=== PATIENT | male | born 1990 | race Caucasian/White ===

== ENCOUNTER 2017-12-25 20:32 | Inpatient (IN) | payer SELFPAY ==
[~2017-12-25] VITALS: Ht 185.4 cm; Wt 84.0 kg
[2017-12-25] MEDS ORDERED: IOHEXOL 350 MG/ML 10 ML VIAL (for RAD DIAG) IVCONTRAST ONE (20:33)
[2017-12-25 20:34] VITALS: O2SAT 100
[2017-12-25] MEDS ORDERED: ceFAZolin 2 GM PREMIX 50 ML ONE (20:36)
[2017-12-25] MEDS ORDERED: DIPHTH/TETANUS/ACEL PERTUSSIS (BOOSTER) 0.5 ML VIAL/PFS IM ONE (20:36)
[2017-12-25] MEDS ORDERED: ONDANSETRON HCL 4 MG/2 ML VIAL ONE (20:42)
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
[2017-12-25 20:59] LABS: BASOPHIL % 0.6 % (0.0-2.0); EOSINOPHIL # 0.1 TH/MM3 (0-0.4); EOSINOPHIL % 0.8 % (0.0-4.0); HEMATOCRIT 37.1 % (39.0-51.0); HEMOGLOBIN 13.1 GM/DL (13.0-17.0); LYMPH % 24.4 % (9.0-44.0); LYMPHOCYTE # 2.2 TH/MM3 (1.0-4.8); MEAN CELL VOLUME 90.2 FL (80.0-100.0); MEAN CORPUSCULAR HGB CONC 35.5 % (32.0-36.0); MEAN PLATELET VOLUME 7.6 FL (7.0-11.0); MONO % 6.5 % (0.0-8.0); MONOCYTE # 0.6 TH/MM3 (0-0.9); NEUT % 67.7 % (16.0-70.0); PLATELET COUNT 260 TH/MM3 (150-450); RED BLOOD COUNT 4.11 MIL/MM3 (4.50-5.90); WHITE BLOOD COUNT 8.9 TH/MM3 (4.0-11.0)
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
[2017-12-25] MEDS ORDERED: GENTAMICIN 80 MG PREMIX 100 ML ONE (21:09)
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
[2017-12-25 21:13] LABS: INTERNATIONAL NORMALIZED RATIO 1.2 RATIO; PROTHROMBIN TIME - PATIENT 11.7 SEC (9.8-11.6)
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
[2017-12-25] MEDS ORDERED: LACTATED RINGER'S 1000 ML INJ 1,000 ML IV SCH (21:18)
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
[2017-12-25] MEDS ORDERED: CHLORHEXIDINE GLUCONATE 2 % 1 PACK (2 CLOTHS) TOP PRN (21:30)
[2017-12-25] MEDS ORDERED: ONDANSETRON HCL 4 MG/2 ML VIAL IV PUSH PRN (21:30)
[2017-12-25] MEDS ORDERED: MISCELLANEOUS NURSING INFORMATION XX SCH (21:30)
[2017-12-25] MEDS ORDERED: HYDROmorphone HCL PF 2 MG/ML VIAL IV PUSH PRN ×2 (21:30)
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
[2017-12-25 21:43] VITALS: BP 132/77; PULSE 72; RESP 18; O2SAT 97
[2017-12-25] MEDS ORDERED: LIDOCAINE 2%/EPINEPHrine 1:100,000 20ML MDV NERV BLOCK ONE (21:45)
[2017-12-25] MEDS ORDERED: D5-1/2 NS + KCL 40 MEQ INJ 1,000 ML IV SCH (22:30)
[2017-12-26] MEDS ORDERED: GENTAMICIN 80 MG PREMIX 100 ML IV ONE (01:15)
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
[2017-12-26] MEDS ORDERED: CHLORHEXIDINE GLUCONATE 2 % 1 PACK (2 CLOTHS) TOP SCH (04:00)
[2017-12-26] MEDS ORDERED: DOCUSATE SODIUM 100 MG CAP PO SCH (09:00)
== END 2017-12-26 02:16 | disposition left against medical advice (07) | DRG 914 ==
LOC: NEPI 20:32 → EDBD 21:25 → NEDA 21:25 → N06A 12-26 01:58
PROVIDERS: ADMIT Surgery Trauma Surgery; ATTEND Surgery Trauma Surgery
PROC: 0HQDXZZ Repair Right Lower Arm Skin, External Approach (ICD-10-PCS; principal; 2017-12-25)
PROC: 0HCKXZZ Extirpation of Matter from Right Lower Leg Skin, External Approach (ICD-10-PCS; 2017-12-25)
DX: S81.821A Laceration with foreign body, right lower leg, initial encounter (principal); S01.111A Laceration without foreign body of right eyelid and periocular area, initial encounter; S51.812A Laceration without foreign body of left forearm, initial encounter; V89.2XXA Person injured in unspecified motor-vehicle accident, traffic, initial encounter; Y92.410 Unspecified street and highway as the place of occurrence of the external cause
CPT/HCPCS: 10120; 12002; 12011; 70450; 70486; 71045; 71260; 72125; 72170; 73560; 73564; 73700; 74177; 80048; 85025; 85610; 85730; 86850; 86900; 86901; 88305; 88311; 90471; 90715; 96365; 96375; 99291; G0390; J0690; J1170; J1580; J2405; J3010; J3480; L1830; Q9967